=== PATIENT | female | born 1985 | race Caucasian/White ===

== ENCOUNTER 2016-08-28 17:54 | Emergency (ER) | payer OTHER ==
--- NOTE | 2016-08-28 19:55 | ED ORDER SUMMARY ---
..... Patient: KEITH PRO OrderSheet [facility] VisitID: [id number] [address] [place] [address] 31y, F Registration Date/Time: 08/28/2016 ORDER SHEET Weight: 81.6 kg (stated) Allergies: None GENERAL ORDERS: POC - Urine hCG (18:42 08/28/2016 Bryanna LITTLE) (Cancelled: Wrong Order19:22 Cole Tiwari.N.) Urine Urgent (19:21 08/28/2016 Cole R.NLani written order Bryanna LITTLE) (19:24 ALawrence ER Tech1) MEDICATION ORDERS: Dilaudid IM 2 mg (NOW) (18:42 08/28/2016 Bryanna LITTLE) (19:00 KKnemacho R.N.) Valium PO 10 mg (NOW) (18:42 08/28/2016 Bryanna LITTLE) (18:55 Cole R.N.) Toradol IM 60 mg (NOW) (19:30 08/28/2016 Bryanna LITTLE) (19:41 IVONNEnemacho R.N.) Prednisone PO 60 mg (NOW) (19:31 08/28/2016 Bryanna LITTLE) (19:42 Cole R.N.) IV FLUIDS: ORDER SHEET NOTES: [Electronically signed by Heaven Fang R.N. (22:20 08/28/2016)] [Electronically signed by Steven Hinson MD (21:25 08/30/2016)] [Electronically locked/signed by Heaven Fang R.N. (22:20 08/28/2016)]
--- NOTE | 2016-08-28 19:55 | ED CLINICAL REPORT ---
Clinical Report - Physicians/Mid Levels [facility] [address] [place] [address] 08/28/2016 17:55 Patient: KEITH PRO Time Seen: 18:00. Arrived- By private vehicle. Historian- patient. HISTORY OF PRESENT ILLNESS Chief Complaint: BACK PAIN. It is described as being severe and in the area of the lower lumbar spine and radiating (down both legs to knees in stocking distribution.). The quality is noted to be "pain" and similar to prior episodes. Modifying factors. (moving). Onset- about 4 weeks ago; Pretty bad for a month with MS Contin from pain management Dr. Worse today 2 hours ago. No bladder dysfunction, bowel dysfunction, sensory loss or motor loss. Patient denies an injury. No other injury. Similar symptoms previously: Many times. Recent medical care: The patient was seen recently by a health care provider. ( Years of seeing pain Dr for RA, back pain . Seeing chiropractor.). REVIEW OF SYSTEMS Last normal menstrual period was 1 week ago. Sexual history - sexually active. No contraception. No chills, fever, decreased vision, chest pain or cough. No difficulty breathing, abdominal pain, black stools or bloody stools. The patient has had back pain. PAST HISTORY Pain management physician PCP: Estela CHOWDARY PROBLEMS: Rheumatoid Arthritis. Back Pain. Fibromyalgia. Immunizations. LNMP - Last Normal Menstrual Period. Atrial tachycardia.. Additional Surgeries: C567 fusion. Cardiac ablasion. Cholecystectomy. Knee Surgery. Shoulder Surgery. Medications: Anti-Inflammatory. OxyCODONE HCl Oral. MS Contin Oral. Gabapentin Oral. Allergies: None. SOCIAL HISTORY The patient lives with spouse. ADDITIONAL NOTES The nursing notes have been reviewed. PHYSICAL EXAM Vital Signs: 08/28/2016 20:15 BP: 105/68. HR: 81. O2 saturation: 96%. Pain level now: 03/01. 08/28/2016 18:08 BP: 127/74. HR: 114. RR: 20. O2 saturation: 100%. Temp: 98.8 F. Pain level now: 03/31. Appearance: Alert. Patient in moderate distress. ENT: Pharynx normal. Respiratory: Breath sounds normal. Abdomen: Soft and nontender. Back: Soft tissue tenderness in the right mid and lower, left mid and lower and mid and lower central lumbar area. Extremities: Extremities exhibit normal ROM. Extremities nontender. Neuro: No motor deficit. No sensory deficit. Straight leg raising: negative on the right and negative on the left. Reflex exam: right patellar 2+, left patellar 2+, right Achilles 0 and left Achilles 0. LABS, X-RAYS, AND EKG Laboratory Tests: Urine: (ELLA: 08/28/2016 19:00) ( MsgRcvd 08/28/2016 19:29) Final results Test Result Flag Units (Reference) URINE NEGATIVE . PROGRESS AND PROCEDURES Course of Care: With Neg SLR and nl LE exam this is not a neurosurgical emergency. With years of prior opiates providing for pain relief is challenging. She will use her existing meds and use Robaxin for muscle spasm and ibuprofen to decrease base line pain as well as prednisone. Disposition: Discharged. Condition: stable. CLINICAL IMPRESSION Acute lumbar strain. INSTRUCTIONS (IMMEDIATE RECHECK FOR LOSS OF BOWEL OR BLADDER CONTROL. BY PHYSICAL EXAM YOUR PAIN SEEMS TO BE FROM MUSCLES NOT FROM A DISK INJURY IN ADDITION TO YOUR USUAL MORPHINE SULFATE AND OXYCODONE, ADD ROBAXIN, PREDNISONE AND (IBUPROFEN 600 MG THREE TIMES A DAY ON A SCHEDULE. )). Prescription Medications: Robaxin 750 mg: Take 2 orally every 6 hours as needed for muscle spasm. Dispense thirty (30). No refills. Substitution is permissible. Prednisone 20 mg: take 3 orally every day for 5 days. Dispense fifteen (15). No refills. (Electronically signed by Steven Hinson MD 08/30/2016 21:25)
--- NOTE | 2016-08-28 19:55 | ED ORDER SUMMARY ---
..... Patient: KEITH PRO OrderSheet [facility] VisitID: [id number] [address] [place] [address] 31y, F Registration Date/Time: 08/28/2016 ORDER SHEET Weight: 81.6 kg (stated) Allergies: None GENERAL ORDERS: POC - Urine hCG (18:42 08/28/2016 Bryanna LITTLE) (Cancelled: Wrong Order19:22 Cole Tiwari.N.) Urine Urgent (19:21 08/28/2016 Cole R.NLani written order Bryanna LITTLE) (19:24 ALawrence ER Tech1) MEDICATION ORDERS: Dilaudid IM 2 mg (NOW) (18:42 08/28/2016 Bryanna LITTLE) (19:00 KKnemacho R.N.) Valium PO 10 mg (NOW) (18:42 08/28/2016 Bryanna LITTLE) (18:55 Cole R.N.) Toradol IM 60 mg (NOW) (19:30 08/28/2016 Bryanna LITTLE) (19:41 IVONNEnemacho R.N.) Prednisone PO 60 mg (NOW) (19:31 08/28/2016 Bryanna LITTLE) (19:42 Cole R.N.) IV FLUIDS: ORDER SHEET NOTES: [Electronically signed by Heaven Fang R.N. (22:20 08/28/2016)] [Electronically signed by Steven Hinson MD (21:25 08/30/2016)] [Electronically locked/signed by Heaven Fang R.N. (22:20 08/28/2016)]
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
--- NOTE | 2016-08-30 21:26 | ED MAR SUMMARY ---
..... Medication Administration Record [facility] [address] [place] [address] Patient: KEITH POR Visit ID: [id number] 31y, F Weight: 81.6 kg Height/Length: 68 in BMI: 27.4 ALLERGIES: None Given 18:55 08/28/2016 Heaven Fang R.N. Medication Administered: VALIUM [PO] (DIAZEPAM), Dose: 10 mg Tablets PO. Medication Ordered: Valium PO 10 mg (NOW). Given 19:00 08/28/2016 Heaven Fang R.N. Medication Administered: DILAUDID [IM] (HYDROMORPHONE HCL PF), Dose: 2 mg IM. Medication Ordered: Dilaudid IM 2 mg (NOW). Given 19:41 08/28/2016 Heaven Fang R.N. Medication Administered: TORADOL [IM] (KETOROLAC TROMETHAMINE), Dose: 60 mg IM. Medication Ordered: Toradol IM 60 mg (NOW). Given 19:42 08/28/2016 Heaven Fang R.N. Medication Administered: PREDNISONE [PO], Dose: 60 mg Tablets PO. Medication Ordered: Prednisone PO 60 mg (NOW).
--- NOTE | 2016-08-30 21:26 | ED MED RECONCILIATION SUMMARY ---
Patient: KEITH PRO Medication Reconciliation Report [facility] VisitID: [id number] [place] [address] 31y, F Registration Date/Time: 08/28/2016 Weight: 81.6 kg Height/Length: 68 in. BMI: 27.4 ALLERGIES: None The patient's Home Medications are listed below: THE FOLLOWING MEDICATIONS NEED TO BE RECONCILED: Anti-Inflammatory Gabapentin Oral MS Contin Oral OxyCODONE HCl Oral The source(s) of the original Home Medication information: Not obtained. The following Medications were given to the patient in the Emergency Department: Valium [PO] PO 10 mg, administered: 08/28/2016 6:55:00 PM Dilaudid [IM] IM 2 mg, administered: 08/28/2016 7:00:00 PM Toradol [IM] IM 60 mg, administered: 08/28/2016 7:41:00 PM Prednisone [PO] PO 60 mg, administered: 08/28/2016 7:42:00 PM The following Medications were prescribed to the patient: Robaxin 750 mg: Take 2 orally every 6 hours as needed for muscle spasm. Dispense thirty (30). No refills. Substitution is permissible. -- Steven Hinson MD Prednisone 20 mg: take 3 orally every day for 5 days. Dispense fifteen (15). No refills. -- Steven Hinson MD
--- NOTE | 2016-08-30 21:26 | ED MED RECONCILIATION SUMMARY ---
Patient: KEITH PRO Medication Reconciliation Report [facility] VisitID: [id number] [place] [address] 31y, F Registration Date/Time: 08/28/2016 Weight: 81.6 kg Height/Length: 68 in. BMI: 27.4 ALLERGIES: None The patient's Home Medications are listed below: THE FOLLOWING MEDICATIONS NEED TO BE RECONCILED: Anti-Inflammatory Gabapentin Oral MS Contin Oral OxyCODONE HCl Oral The source(s) of the original Home Medication information: Not obtained. The following Medications were given to the patient in the Emergency Department: Valium [PO] PO 10 mg, administered: 08/28/2016 6:55:00 PM Dilaudid [IM] IM 2 mg, administered: 08/28/2016 7:00:00 PM Toradol [IM] IM 60 mg, administered: 08/28/2016 7:41:00 PM Prednisone [PO] PO 60 mg, administered: 08/28/2016 7:42:00 PM The following Medications were prescribed to the patient: Robaxin 750 mg: Take 2 orally every 6 hours as needed for muscle spasm. Dispense thirty (30). No refills. Substitution is permissible. -- Steven Hinson MD Prednisone 20 mg: take 3 orally every day for 5 days. Dispense fifteen (15). No refills. -- Steven Hinson MD
--- NOTE | 2016-08-30 21:26 | ED MAR SUMMARY ---
..... Medication Administration Record [facility] [address] [place] [address] Patient: KEITH PRO Visit ID: [id number] 31y, F Weight: 81.6 kg Height/Length: 68 in BMI: 27.4 ALLERGIES: None Given 18:55 08/28/2016 Heaven Fang R.N. Medication Administered: VALIUM [PO] (DIAZEPAM), Dose: 10 mg Tablets PO. Medication Ordered: Valium PO 10 mg (NOW). Given 19:00 08/28/2016 Heaven Fang R.N. Medication Administered: DILAUDID [IM] (HYDROMORPHONE HCL PF), Dose: 2 mg IM. Medication Ordered: Dilaudid IM 2 mg (NOW). Given 19:41 08/28/2016 Heaven Fang R.N. Medication Administered: TORADOL [IM] (KETOROLAC TROMETHAMINE), Dose: 60 mg IM. Medication Ordered: Toradol IM 60 mg (NOW). Given 19:42 08/28/2016 Heaven Fang R.N. Medication Administered: PREDNISONE [PO], Dose: 60 mg Tablets PO. Medication Ordered: Prednisone PO 60 mg (NOW).
--- NOTE | 2016-08-30 21:26 | ED DISCHARGE INSTRUCTIONS ---
Patient: KEITH PRO General Instructions [facility] VisitID: [id number] [place] [address] 31y, F Registration Date/Time: 08/28/2016 Acute lumbar strain. INSTRUCTIONS (IMMEDIATE RECHECK FOR LOSS OF BOWEL OR BLADDER CONTROL. BY PHYSICAL EXAM YOUR PAIN SEEMS TO BE FROM MUSCLES NOT FROM A DISK INJURY IN ADDITION TO YOUR USUAL MORPHINE SULFATE AND OXYCODONE, ADD ROBAXIN, PREDNISONE AND (IBUPROFEN 600 MG THREE TIMES A DAY ON A SCHEDULE. )). Prescription Medications: Robaxin 750 mg: Take 2 orally every 6 hours as needed for muscle spasm. Dispense thirty (30). No refills. Substitution is permissible. Prednisone 20 mg: take 3 orally every day for 5 days. Dispense fifteen (15). No refills. ADDITIONAL INFORMATION Back Pain [Acute Or Chronic] Back pain is usually caused by an injury to the muscles or ligaments of the spine. Sometimes the disks that separate each bone in the spine may bulge and cause pain by pressing on a nearby nerve. Back pain may also appear after a sudden twisting/bending force (such as in a car accident), after a simple awkward movement, or lifting something heavy with poor body positioning. In either case, muscle spasm is often present and adds to the pain. Acute back pain usually gets better in one to two weeks. Back pain related to disk disease, arthritis in the spinal joints or spinal stenosis (narrowing of the spinal canal) can become chronic and last for months or years. Unless you had a physical injury (for example, a car accident or fall) X-rays are usually not ordered for the initial evaluation of back pain. If pain continues and does not respond to medical treatment, x-rays and other tests may be performed at a later time. Home Care: You may need to stay in bed the first few days. But, as soon as possible, begin sitting or walking to avoid problems with prolonged bed rest (muscle weakness, worsening back stiffness and pain, blood clots in the legs). When in bed, try to find a position of comfort. A firm mattress is best. Try lying flat on your back with pillows under your knees. You can also try lying on your side with your knees bent up towards your chest and a pillow between your knees. Avoid prolonged sitting. This puts more stress on the lower back than standing or walking. During the first two days after injury, apply an ICE PACK to the painful area for 20 minutes every 2-4 hours. This will reduce swelling and pain. HEAT (hot shower, hot bath or heating pad) works well for muscle spasm. You can start with ice, then switch to heat after two days. Some patients feel best alternating ice and heat treatments. Use the one method that feels the best to you. You may use acetaminophen (Tylenol) or ibuprofen (Motrin, Advil) to control pain, unless another pain medicine was prescribed. [NOTE: If you have chronic liver or kidney disease or ever had a stomach ulcer or GI bleeding, talk with your doctor before using these medicines.] Be aware of safe lifting methods and do not lift anything over 15 pounds until all the pain is gone. Follow Up with your doctor or this facility if your symptoms do not start to improve after one week. Physical therapy may be needed. [NOTE: If X-rays were taken, they will be reviewed by a radiologist. You will be notified of any new findings that may affect your care.] Get Prompt Medical Attention if any of the following occur: Pain becomes worse or spreads to your legs Weakness or numbness in one or both legs Loss of bowel or bladder control Numbness in the groin or genital area You have been given the following additional information: Back Pain (Acute Or Chronic) (Electronically signed by Steven Hinson MD 08/30/2016 21:25)
== END 2016-08-28 20:16 | disposition home or self-care (01) ==
LOC: ED SRH 17:54
DX: S39.012A Strain of muscle, fascia and tendon of lower back, initial encounter (principal); X58.XXXA Exposure to other specified factors, initial encounter; Z79.891 Long term (current) use of opiate analgesic; Z79.899 Other long term (current) drug therapy
CPT/HCPCS: 93070